=== PATIENT | male | born 1950 | race Caucasian/White ===

== ENCOUNTER 2019-06-09 21:06 | Inpatient (IN) | payer OTHER ==
[~2019-06-09] VITALS: Ht 182.9 cm; Wt 111.1 kg
[2019-06-09] MEDS ORDERED: ACCU-CHEK COMFORT CURVE STRIP VI ONE (21:30)
[2019-06-09 22:27] LABS: INR 0.98 (0.9-1.15); Partial Thromboplastin Time 25.9 sec (23.64-32.05)
[2019-06-09 22:32] LABS: Alanine Aminotransferase 36 U/L (16-61); Albumin 3.9 g/dL (3.4-5.0); Anion Gap 7 (5-15); Blood Urea Nitrogen 19 mg/dL (7-18); Calcium 9.6 mg/dL (8.5-10.1); Carbon Dioxide 29 mmol/L (21-32); Chloride 105 mmol/L (98-107); Glucose 112 mg/dL (74-106); Potassium 4.6 mmol/L (3.5-5.1); Sodium 141 mmol/L (136-145)
[2019-06-09 22:36] LABS: Basophils # (auto) 0 uL; Basophils % (auto) 0.4 % (0.0-2.0); Eosinophils # (auto) 0.1 uL; Eosinophils % (auto) 1.3 % (0.0-7.0); Hematocrit 47.9 % (41.0-53.0); Lymphocytes % (auto) 14.2 % (10.0-50.0); Mean Corpuscular Hemoglobin 32.6 pg (28.0-32.0); Mean Corpuscular Hgb Conc. 33.5 g/dL (32.0-36.0); Mean Corpuscular Volume 97.3 fL (80.0-100.0); Monocytes # (auto) 0.7 uL; Neutrophils # (auto) 5.1 uL; Neutrophils % (auto) 74.1 % (37.0-80.0); Platelet Count (auto) 223 10^3/uL (140-450); Red Blood Cells 4.92 10^6/uL (4.5-5.90); White Blood Cell 6.9 10^3/uL (4.4-10.8)
[2019-06-09 22:38] LABS: Alkaline Phosphatase 71 U/L (45-117); Aspartate Aminotransferase 39 U/L (15-37); BUN/Creatinine Ratio 18.4; Bilirubin, Total 0.8 mg/dL (0.2-1.0); GFR African American 92 mL/min; GFR Non-African American 76 mL/min; Total Protein 8.1 g/dL (6.4-8.2)
[2019-06-10 04:11] LABS: Urine Bacteria NONE SEEN /hpf (None Seen); Urine Blood Negative /uL (Negative); Urine Specific Gravity 1.023 (1.001-1.035); Urine WBC 2 /hpf (0 - 3)
[2019-06-10] MEDS ORDERED: SPIRONOLACTONE 25 MG TAB PO ONE (08:15)
[2019-06-10] MEDS ORDERED: ONDANSETRON HCL 4 MG/2 ML VIAL IV ONE ×2 (08:15→20:45)
[2019-06-10] MEDS ORDERED: FUROSEMIDE 40 MG/4 ML VIAL IV ONE (08:15)
[2019-06-10] MEDS ORDERED: MORPHINE SULF INJ 2 MG/ML SYRINGE 1ML IV ONE ×2 (08:15→16:00)
[2019-06-10] MEDS ORDERED: MORPHINE SULFATE 4 MG/ML SYR/VIAL IV ONE (20:45)
[2019-06-10] MEDS ORDERED: NITROGLYCERIN 0.4 MG SL TAB SL PRN (22:00)
[2019-06-10] MEDS ORDERED: TEMAZEPAM 15 MG CAP PO PRN (22:00)
[2019-06-10] MEDS ORDERED: MORPHINE SULF INJ 2 MG/ML SYRINGE 1ML IV PRN (22:00)
[2019-06-10] MEDS ORDERED: ONDANSETRON HCL 4 MG/2 ML VIAL IV PRN (22:00)
[2019-06-10] MEDS ORDERED: ACETAMINOPHEN 325 MG TAB PO PRN (22:00)
[2019-06-10] MEDS ORDERED: DEXTROSE (50%) 50ML SYRG IV PRN (22:00)
[2019-06-10 22:07] LABS: Basophils # (auto) 0 uL; Basophils % (auto) 0.4 % (0.0-2.0); Eosinophils # (auto) 0.1 uL; Eosinophils % (auto) 1.5 % (0.0-7.0); Hemoglobin 15.6 g/dL (13.5-17.5); Lymphocytes % (auto) 13.9 % (10.0-50.0); Mean Corpuscular Hgb Conc. 33.3 g/dL (32.0-36.0); Mean Corpuscular Volume 96.1 fL (80.0-100.0); Monocytes % (auto) 13.9 % (0.0-12.0); Neutrophils # (auto) 4.9 uL; Neutrophils % (auto) 70.3 % (37.0-80.0); Nucleated Red Blood Cells % 0.1 %; Platelet Count (auto) 201 10^3/uL (140-450); Red Blood Cells 4.89 10^6/uL (4.5-5.90); Red Cell Distribution Width 14.7 % (11.8-14.3); White Blood Cell 6.9 10^3/uL (4.4-10.8)
[2019-06-10 22:21] LABS: BUN/Creatinine Ratio 13.7; Calcium 8.7 mg/dL (8.5-10.1); Potassium 4.1 mmol/L (3.5-5.1)
[2019-06-10 23:00] VITALS: BP 144/75
--- NOTE | 2019-06-10 23:00 | NUR ---
Telemetry admit from ER TITUS SNELL admitted to Telemetry unit after SBAR received. Patient oriented to JEFFREY CARBAJAL RN primary RN, unit, room, bed, and unit policies regarding patient care and visiting hours. Patient now on continuous telemetry monitoring, tele box # 51 and telemetry reading on arrival to unit is Sinus Rhythm at 81BPM. Patient placed on bedside oxygen, weighed by bedscale and encouraged to call if they need something. All questions and concerns addressed, patient verbalized understanding.
[2019-06-10 23:22] VITALS: BP 144/75
[2019-06-10] MEDS: AMIODARONE HCL 200 MG TAB PO SCH (23:24)
[2019-06-10] MEDS: ATORVASTATIN 20 MG TAB PO SCH (23:24)
[2019-06-10] MEDS: FAMOTIDINE 20 MG TAB PO SCH (23:24)
[2019-06-10] MEDS: ACCU-CHEK COMFORT CURVE STRIP VI SCH (23:47)
[2019-06-10] MEDS: InsuLIN REG 1unit/0.01ml Soln (100units/ml) SC SCH (23:48)
[2019-06-11] VITALS (8 sets, daily range): BP systolic 118–136; BP diastolic 62–73
[2019-06-11] MEDS ORDERED: GLIP5TAB12 PO (01:15)
[2019-06-11] MEDS ORDERED: LISI2.5T47 PO (01:15)
[2019-06-11] MEDS ORDERED: METF-490 PO (01:15)
[2019-06-11] MEDS ORDERED: CYAN50TA3 PO (01:15)
[2019-06-11] MEDS ORDERED: ISOS30TA4 PO (01:15)
[2019-06-11] MEDS ORDERED: PIO30T PO (01:15)
[2019-06-11] MEDS ORDERED: FLAX10003 PO (01:15)
[2019-06-11] MEDS ORDERED: DABI150C5 PO (01:15)
[2019-06-11] MEDS ORDERED: AMIO200T33 PO (01:15)
[2019-06-11] MEDS ORDERED: OMEP-335 PO (01:15)
[2019-06-11] MEDS ORDERED: GABA300C10 PO (01:15)
[2019-06-11] MEDS ORDERED: FESO8TAB PO (01:15)
[2019-06-11] MEDS ORDERED: ATO40T PO (01:15)
[2019-06-11] MEDS ORDERED: LEVO50TA61 PO (01:15)
[2019-06-11] MEDS ORDERED: DRON400T PO (01:15)
[2019-06-11] MEDS ORDERED: PRE5T PO (01:15)
--- NOTE | 2019-06-11 02:10 | NUR ---
ROUNDS Patient is c/o pain to right flank and back 5/10. Hospitalist paged, order received and noted.
[2019-06-11] MEDS ORDERED: traMADol HCL 50 MG TAB PO ONE (02:30)
--- NOTE | 2019-06-11 02:30 | NUR ---
Panda catheter insertion Patient assessed and informed about the doctor's order to placed a panda catheter. Patient educated on catheter and reason for insertion, patient verbalized understanding. All questions answered. Panda catheter 16 guage Thai inserted with clean sterile technique. Patient tolerated well.
--- NOTE | 2019-06-11 02:45 | NUR ---
Went to patient's room to see if patient still needs pain medication, patient is resting with eyes closed at this time. Will monitor
--- NOTE | 2019-06-11 05:30 | NUR ---
ROUNDS Ultram given for pain to right flank of 5/10. Patient is alert and awake, no distress noted. Repositioned patient to right side using pillows. Patient states he feels like he is constipated. Will inform day nurse to request for laxative.
[2019-06-11] MEDS: FUROSEMIDE 20 MG/2 ML VIAL IV SCH ×2 (05:31→17:43)
[2019-06-11] MEDS: InsuLIN REG 1unit/0.01ml Soln (100units/ml) SC SCH ×4 (06:00→23:44)
[2019-06-11] MEDS: ACCU-CHEK COMFORT CURVE STRIP VI SCH ×4 (06:10→23:43)
[2019-06-11 06:34] LABS: Anion Gap 8 (5-15); BUN/Creatinine Ratio 16.1; Blood Urea Nitrogen 15 mg/dL (7-18); Carbon Dioxide 29 mmol/L (21-32); Chloride 96 mmol/L (98-107); GFR African American 104 mL/min; GFR Non-African American 86 mL/min; Glucose 117 mg/dL (74-106); Sodium 133 mmol/L (136-145)
--- NOTE | 2019-06-11 07:30 | NUR ---
Opening Shift Note RECEIVED REPORT FROM NOC RN. Assumed care of patient, awake and alert. PATIENT ON OXYGEN AT 3 LPM VIA NASAL CANNULA WITH no S/S of distress/SOB or pain. BED IN LOWEST, LOCKED POSITION WITH SIDERAILS UP x2 AND CALL LIGHT WITHIN REACH. Instructed on POC and to call for assist PRN, will continue to monitor for changes Q1hr and PRN.
[2019-06-11] MEDS ORDERED: IOHEXOL 350 MG/ML 100ML IJ ONE (07:41)
[2019-06-11] MEDS: FAMOTIDINE 20 MG TAB PO SCH ×2 (10:57→21:37)
[2019-06-11] MEDS: AMIODARONE HCL 200 MG TAB PO SCH ×2 (10:57→21:37)
[2019-06-11] MEDS: ISOSORBIDE MONONITRATE ER 60 MG TAB PO SCH (10:57)
[2019-06-11] MEDS: CLOPIDOGREL BISULFATE 75 MG TAB PO SCH (10:58)
[2019-06-11] MEDS: LISINOPRIL 5 MG TAB PO SCH (10:58)
[2019-06-11] MEDS: ENOXAPARIN SOD 40 MG/0.4 ML SYRINGE SC SCH (10:58)
[2019-06-11] MEDS ORDERED: ALBUTEROL SULF 2.5 MG/0.5ML(0.5%) NEB SOLN NEB PRN (11:15)
[2019-06-11] MEDS ORDERED: LEVOFLOXACIN 500MG 100 ML IV ONE (11:15)
--- NOTE | 2019-06-11 19:30 | NUR ---
Opening Shift Note Assumed care of patient, alert and oriented x 4. No S/S of distress/SOB. C/O pain of 5/10 to right side due to previous fall. Bed in lowest locked position, side rails up x 2, call light within reach. Dominguez patent and draining to gravity. Rash to groin noted, z-guard applied, optifoam to sacrum CDI, z-guard applied, optifoam to LT elbow CDI. Instructed on POC and to call for assist PRN, will continue to monitor for changes Q1hr and PRN.
--- NOTE | 2019-06-11 20:05 | NUR ---
Respiratory note: ASSESSED PT FOR PRN MED NEB AT THIS TIME, PT DENIES SOB AT THIS TIME, NO RESP DISTRESS NOTED, NO TX INDICATED. PULSE OX 94% ON 3LNC, HR 77, RR 20, BILATERAL BS CLEAR
[2019-06-11] MEDS: ACETAMINOPHEN/CODEINE#3 (300/30mg) TAB PO PRN (20:24)
[2019-06-11] MEDS: ATORVASTATIN 20 MG TAB PO SCH (21:37)
[2019-06-12] VITALS (7 sets, daily range): BP systolic 108–129; BP diastolic 62–78
[2019-06-12 05:31] LABS: BUN/Creatinine Ratio 18.5; Calcium 9.4 mg/dL (8.5-10.1); Potassium 3.9 mmol/L (3.5-5.1)
[2019-06-12] MEDS: FUROSEMIDE 20 MG/2 ML VIAL IV SCH ×2 (05:44→17:35)
[2019-06-12] MEDS: InsuLIN REG 1unit/0.01ml Soln (100units/ml) SC SCH ×4 (05:44→23:57)
[2019-06-12] MEDS: ACCU-CHEK COMFORT CURVE STRIP VI SCH ×4 (05:44→23:56)
--- NOTE | 2019-06-12 06:15 | NUR ---
PRN MN TX NOT INDICATED AT THIS TIME. PT IS AWAKE, ALERT AND ORIENTED. PT ON HIGH FOWLERS. PT ON 3L/MIN VIA NC, 94%O2 SATS, HR 72 BPM, RR17 BPM, BS ARE CLEAR TO AUSCULTATION, SKIN IS WARM AND DRY TO THE TOUCH. RESPIRATION IS EVEN AND NON LABORED. PT DENIES SOB OR ANY OTHER RESPIRATORY DISTRESS. PT INSTRUCTED TO CALL IF MN TX IS INDICATED. PT VERBALIZED UNDERSTANDING. WILL CONTINUE TO MONITOR PT.
--- NOTE | 2019-06-12 07:30 | NUR ---
Opening Shift Note RECEIVED REPORT FROM NOC RN. Assumed care of patient, awake and alert. No S/S of distress/SOB or pain. BED IN LOWEST, LOCKED POSITION WITH SIDERAILS UP x2 AND CALL LIGHT WITHIN REACH. Instructed on POC and to call for assist PRN, will continue to monitor for changes Q1hr and PRN.
[2019-06-12] MEDS: ENOXAPARIN SOD 40 MG/0.4 ML SYRINGE SC SCH (10:16)
[2019-06-12] MEDS: LEVOFLOXACIN 500MG 100 ML IV SCH (10:16)
[2019-06-12] MEDS: ISOSORBIDE MONONITRATE ER 60 MG TAB PO SCH (10:17)
[2019-06-12] MEDS: CLOPIDOGREL BISULFATE 75 MG TAB PO SCH (10:17)
[2019-06-12] MEDS: FAMOTIDINE 20 MG TAB PO SCH ×2 (10:17→21:37)
[2019-06-12] MEDS: AMIODARONE HCL 200 MG TAB PO SCH ×2 (10:18→21:37)
[2019-06-12] MEDS: LISINOPRIL 5 MG TAB PO SCH (10:18)
--- NOTE | 2019-06-12 12:15 | NUR ---
WOUND CARE NOTE: IN TO SEE PATIENT AT THIS TIME PER WOUND CARE CONSULT REQUEST. PATIENT WAS ADMITTED TO [facility] WITH DIAGNOSIS OF ACUTE/CHRONIC CHF. CURRENT KINA SCORE IS 15. PATIENT CAN SELF TURN/REPOSITION SELF WITH NO ASSISTANCE BY STAFF. PATIENT WAS NOTED TO HAVE SKIN INTEGRITY ISSUES UPON ADMIT. WOUND PHOTOS WERE TAKEN FOR REFERENCE. PATIENT IS NTOED TO HAVE INTERTRIGO, WITH MASD AND SKIN EROSION TO INTRAGLUTEAL BUTTOCKS. ANTIFUNGAL CLEAR OINTMENT WAS APPLIED BY BEDSIDE NURSE. LEFT ELBOW IS NOTED TO HAVE A SKIN TEAR THAT IS PARTIAL THICKNESS. APPLIED THERAHONEY, OPTIFOAM GENTLE DRESSING TO WOUND. PATIENT WOULD BENEFIT FROM: FREQUENT TURN SCHEDULE Q 2 HOURS, PRN CONDITION PERMITS, WITH PRESSURE REDISTRIBUTION USING PILLOWS/WEDGES, BID APPLICATION WITH ANTIFUNGAL CLEAR OINTMENT TO INTRAGLUTEAL INTERTRIGINOUS RASH AREA, Q 3 DAY/PRN DRESSING CHANGE TO LEFT ELBOW SKIN TEAR, DIETARY CONSULT, SKIN/WOUND CARE PLAN, CONTINUED MONITORING BY WOUND CARE TEAM. Addendum: 06/12/19 at 1914 by Yuridia Eid RN Amended: Links added.
--- NOTE | 2019-06-12 14:19 | NUR ---
NUTRITION CONSULT/ASSESSMENT NOTES Please refer to link notes of nutrition screen form filed under the intervention section of the plan of care for further details. Est. Needs: 1800 kcal to 2400 kcal (15-20 kcal/kgBW), 95 gms to 119 gms pro (0.8-1.0 gms/kgBW). Will continue to monitor pertinent labs and reassess nutrient need prn Thank you for this consult. Addendum: 06/12/19 at [address] Amended: Links added.
[2019-06-12] MEDS: ACETAMINOPHEN/CODEINE#3 (300/30mg) TAB PO PRN ×2 (16:00→21:37)
--- NOTE | 2019-06-12 19:30 | NUR ---
Opening Shift Note Assumed care of patient, alert and oriented x 4. No S/S of distress/SOB. C/O pain 5/10 to buttox. On 3L oxygen via nasal cannula. On bedrest, up to chair with PT. Bed in lowest locked position, side rails up x 2, call light within reach. Instructed on POC and to call for assist PRN, will continue to monitor for changes Q1hr and PRN.
[2019-06-12] MEDS: ATORVASTATIN 20 MG TAB PO SCH (21:37)
--- NOTE | 2019-06-13 00:23 | NUR ---
RT NOTE: PT ASSESSED FOR PRN MED NEB TX, PT DENIES SOB , BS CLEAR AND DECREASED WITH NO RESP DISTRESS NOTED. PT ON 2LPM NC SPO2 95% HR 79, RR 16. PT NOTIFIED TO HAVE RT PAGED IF SOB OCCURS.
[2019-06-13 05:00] VITALS: BP 143/66
[2019-06-13] MEDS: InsuLIN REG 1unit/0.01ml Soln (100units/ml) SC SCH ×4 (06:01→23:44)
[2019-06-13] MEDS: FUROSEMIDE 20 MG/2 ML VIAL IV SCH ×2 (06:01→18:38)
[2019-06-13] MEDS: ACCU-CHEK COMFORT CURVE STRIP VI SCH ×4 (06:01→23:44)
--- NOTE | 2019-06-13 08:10 | NUR ---
Opening Note Assumed Care of patient, he is A & O x4, no s/s of distress at this time. POC discussed with patient. Patient states the Tylenol with codeine does not work for his pain and is requesting [place] instead. Will bring it to Dr. Carias's atttention. Bed is in low, locked position, call light within reach. Patient is a fall risk, bed alarm is on, educated patient to call for assistance before exiting bed. Will continue to monitor Q1h and PRN.
[2019-06-13 09:00] VITALS: BP 114/67
--- NOTE | 2019-06-13 10:08 | NUR ---
Respiratory note: ASSESSED PT FOR PRN MEDNEB TX. HR 74, RR 16, POX 94% ON 3L NC. BREATH SOUNDS CLEAR THROUGHOUT. NO S/S OF RESPIRATORY DISTRESS. MEDNEB TX NOT INDICATED AT THIS TIME. ADVISED PT TO CALL FOR RT IF NEEDED.
[2019-06-13] MEDS: CLOPIDOGREL BISULFATE 75 MG TAB PO SCH (10:48)
[2019-06-13] MEDS: LEVOFLOXACIN 500MG 100 ML IV SCH (10:48)
[2019-06-13] MEDS: AMIODARONE HCL 200 MG TAB PO SCH ×2 (10:49→22:30)
[2019-06-13] MEDS: ENOXAPARIN SOD 40 MG/0.4 ML SYRINGE SC SCH (10:49)
[2019-06-13] MEDS: FAMOTIDINE 20 MG TAB PO SCH ×2 (10:49→22:30)
[2019-06-13] MEDS: ISOSORBIDE MONONITRATE ER 60 MG TAB PO SCH (10:51)
[2019-06-13] MEDS: LISINOPRIL 5 MG TAB PO SCH (10:52)
--- NOTE | 2019-06-13 12:30 | NUR ---
PT walked patient Walked patient with walker, reported that patient had some discomfort with catheter when sitting in a chair, was told by PT that there was a little bit of blood in the patient catheter. Went to assess patient, there was a small clot of blood that passed through the catheter tubing with patient in bed. Catheter is draining appropriately, not causing the patient any problems when lying down, no discomfort at this time. There is a statlock to hold catheter in place attached to patient leg. Will continue to monitor.
[2019-06-13 13:00] VITALS: BP 128/72
--- NOTE | 2019-06-13 13:30 | NUR ---
Patient IV leaking L AC 18G discontinued it was leaking, catheter intact, pressure bandage applied. New 22G started to the right wrist. Patient tolerated well.
[2019-06-13] MEDS: HYDROcodone-ACET 5/325MG TAB PO PRN ×2 (13:31→22:31)
[2019-06-13 17:00] VITALS: BP 124/74
--- NOTE | 2019-06-13 18:44 | NUR ---
PT CHECKED FOR PRN TX. PT DENIES SOB, NO ACUTE DISTRESS NOTED. TX IS NOT INDICATED AT THIS TIME. PT UNDERSTANDS TO PAGE IF TX NEEDED. HR 82 RR 18 93% ON 2 LPM VIA NC. B/S CLEAR BUT DECREASED.
--- NOTE | 2019-06-13 19:20 | NUR ---
Opening Shift Note Received report from patricia Harris RN. Assumed care of patient, awake and alert. No S/S of distress/SOB but complains of pain to right side 04/15. Instructed on POC and to call for assist PRN, will continue to monitor for changes Q1hr and PRN. Bed placed in lowest position, bed alarm turned on and call light within reach.
[2019-06-13 20:00] VITALS: BP 104/48
[2019-06-13 22:00] VITALS: BP 104/48
[2019-06-13] MEDS: ATORVASTATIN 20 MG TAB PO SCH (22:30)
--- NOTE | 2019-06-13 23:45 | NUR ---
IV insertion IV access obtained, via clean sterile technique by inserting 20 gauge catheter at left forearm after first attempt. IV secured properly. No trauma to site. Patient tolerated well.
[2019-06-14] VITALS (9 sets, daily range): BP systolic 100–149; BP diastolic 62–90
--- NOTE | 2019-06-14 | NUR ---
REMINDED PATIENT ON NOTHING BY MOUTH STATUS FOR THE UPCOMING STRESS TEST. PATIENT VERBALIZED UNDERSTANDING.
[2019-06-14] MEDS: ACCU-CHEK COMFORT CURVE STRIP VI SCH ×3 (06:16→17:29)
[2019-06-14] MEDS: FUROSEMIDE 20 MG/2 ML VIAL IV SCH ×2 (06:16→17:28)
[2019-06-14] MEDS: InsuLIN REG 1unit/0.01ml Soln (100units/ml) SC SCH ×3 (06:17→17:29)
--- NOTE | 2019-06-14 07:08 | NUR ---
ROUNDS PATIENT IS RESTING IN BED WITH EYES CLOSED, NO DISTRESS NOTED AND PATIENT DENIES PAIN. BLOOD SUGAR IS 153, GIVEN 2 UNITS OF INSULIN COVERAGE.
--- NOTE | 2019-06-14 07:52 | NUR ---
Opening Shift Note Assumed care of patient, awake and alert. No S/S of distress/SOB or pain. Instructed on POC and to call for assist PRN, will continue to monitor for changes Q1hr and PRN.
[2019-06-14] MEDS ORDERED: ADENOSINE 98 MG in GIVE UN-DILUTED 0 ML IV STA (08:18)
--- NOTE | 2019-06-14 08:32 | NUR ---
per manager sterile and pt reported pt panda cath leaking. assessed catheter baloon volume and flushed no leaking noted secured panda to right leg via stat lock will continue to moniotr panda cath output
--- NOTE | 2019-06-14 09:00 | NUR ---
pt left for stress test
[2019-06-14] MEDS: FAMOTIDINE 20 MG TAB PO SCH ×2 (10:00→22:10)
[2019-06-14] MEDS: CLOPIDOGREL BISULFATE 75 MG TAB PO SCH (10:00)
[2019-06-14] MEDS: LEVOFLOXACIN 500MG 100 ML IV SCH (10:00)
[2019-06-14] MEDS: ENOXAPARIN SOD 40 MG/0.4 ML SYRINGE SC SCH (10:00)
[2019-06-14] MEDS: ISOSORBIDE MONONITRATE ER 60 MG TAB PO SCH (10:00)
[2019-06-14] MEDS: AMIODARONE HCL 200 MG TAB PO SCH ×2 (10:00→22:10)
[2019-06-14] MEDS: LISINOPRIL 5 MG TAB PO SCH (10:00)
--- NOTE | 2019-06-14 11:32 | NUR ---
pt returned from procedure complaint if pain 8/10 in lower back
[2019-06-14] MEDS: HYDROcodone-ACET 10/325MG TAB PO PRN ×3 (11:40→22:10)
--- NOTE | 2019-06-14 11:46 | NUR ---
reassessed panda no leaking noted
--- NOTE | 2019-06-14 12:15 | NUR ---
Respiratory note: PT AWAKE, AND ALERT. NO RESPIRATORY DISTRESS NOTED. SPO2 93% ON 3L NC, HR 84, RR 18. BS CLEAR T/O. NO PRN MEDNEB TX INDICATED AT THIS TIME. PT INFORMED TO PUSH CALL BUTTON IF INCREASED WOB, SOB, OR WHEEZING OCCURS.
--- NOTE | 2019-06-14 12:55 | NUR ---
pt ambulating with physical therapy, no complaint of pain or discomfort noted
--- NOTE | 2019-06-14 13:28 | NUR ---
pt noted that after walking with pt he feels a spasm sharp pain when trying to sit down, assessed pt noted blood in panda cath tubing, otherwise draining properly, pt states spasm went away when lying in bed but occasionally happens, paged MD Carias awaiting call back
--- NOTE | 2019-06-14 14:15 | NUR ---
paged md Carias again to report blood in catheter and also to recieve orders for pt constipation awaiting call back
[2019-06-14] MEDS ORDERED: MAGNESIUM CITRATE SOLUTION 300 ML BTL PO ONE (15:30)
[2019-06-14] MEDS ORDERED: LACTULOSE 20Gm/30ML SOLN PO PRN (15:30)
--- NOTE | 2019-06-14 15:30 | NUR ---
md Carias rounded on pt made aware of bladder spasms and pt constipation. explained to pt bladder will spasm with panda cath in, offered usage of urinal per pt "i cant make a urinal work" new orders put in for constipation
--- NOTE | 2019-06-14 15:52 | NUR ---
assessment Patient is a 68 year old male who is alert and oriented. Patients cognitive abilities are intact. Prior to admission patient lived home with his granddaughter Starla [phone] and functioned independently. Patient informed me he is able to care for his own ADLs. Per patient he will return home to his prior living arrangements post discharge and family will transport him home. Patient informed me he has a fww and a scooter for home use. Patients PCP is Dr Aragon. Patient feels safe returning home on discharge. Arielle has no post discharge needs at this time. I informed patient he has a right to speak to a social work administrator regarding all care. I informed patient he has a right to participate in any and all discharge planning. Patient does not have a POA and advanced directive. I have offered patient information on POA and advanced directives. I informed the patient the advantages and benefits of having an Advanced Directive. Patient verbalized understanding and agreed to discharge plan. Addendum: 06/14/19 at 1555 by Zaida GARAY Amended: Links added.
--- NOTE | 2019-06-14 16:32 | NUR ---
PT had one large hard bm
--- NOTE | 2019-06-14 16:40 | NUR ---
pt doesnt want foam dressing on buttocks stated he will be using restroom and doesnt want it to get dirty, cream applied to buttock area
--- NOTE | 2019-06-14 17:03 | NUR ---
pt continued to have bladder spasms accompanied by blood in urine with spasm, hydrocodone given for pain per pt request, also per pt request Dominguez catheter removed, pt given urinal
[2019-06-14] MEDS ORDERED: POTASSIUM CHL 20 Meq TABLET PO ONE (18:00)
--- NOTE | 2019-06-14 18:07 | NUR ---
pt urinated x1 after panda catheter removal using urinal
--- NOTE | 2019-06-14 19:25 | NUR ---
Opening Shift Note Received report from patricia Waldrop RN. Assumed care of patient, awake and alert. No S/S of distress/SOB and patient denies pain at this time. Instructed on POC and to call for assist PRN, will continue to monitor for changes Q1hr and PRN. Bed placed in lowest position, bed alarm turned on and call light within reach.
--- NOTE | 2019-06-14 21:00 | NUR ---
Respiratory note: ASSESSED PT FOR PRN TX. TX NOT INDICATED AT THIS TIME BS ARE DIMINISHED CLEAR. PT STATES HE DOES NOT NEED BREATHING TREATMENT. PT AWARE OF HIS ORDER AND UNDERSTANDS. RT NAME AND PAGER ASSIGNMENT WRITTEN ON PTS ROOM BOARD. WILL CONTINUE TO MONITOR.
[2019-06-14] MEDS: ATORVASTATIN 20 MG TAB PO SCH (22:11)
--- NOTE | 2019-06-14 23:00 | NUR ---
ROUNDS Assisted patient to use the urinal. Patient standing up to the side of bed to use urinal. 150ml of light todd color urine in the urinal. Assisted patient back in bed.
--- NOTE | 2019-06-15 05:00 | NUR ---
EKG DONE FOR PRE-OP. CONSENT FOR LHC SIGNED. PATIENT IS RESTING IN BED WITH EYES CLOSED, NO DISTRESS NOTED AND PATIENT DENIES PAIN THIS TIME. BLOOD SUGAR IS 142 COVERED WITH 2 UNITS OF INSULIN. WILL MONITOR.
[2019-06-15 05:42] VITALS: BP 129/68
[2019-06-15] MEDS: FUROSEMIDE 20 MG/2 ML VIAL IV SCH ×2 (05:57→17:38)
[2019-06-15] MEDS: InsuLIN REG 1unit/0.01ml Soln (100units/ml) SC SCH ×4 (05:58→17:29)
[2019-06-15] MEDS: ACCU-CHEK COMFORT CURVE STRIP VI SCH ×4 (05:58→17:29)
--- NOTE | 2019-06-15 06:00 | NUR ---
LASIX MEDICATION HELD R/T UPCOMING PROCEDURE.
[2019-06-15 06:13] LABS: Basophils # (auto) 0 uL; Basophils % (auto) 0.7 % (0.0-2.0); Eosinophils # (auto) 0.3 uL; Eosinophils % (auto) 4.7 % (0.0-7.0); Hematocrit 50.4 % (41.0-53.0); Lymphocytes # (auto) 1.3 uL; Lymphocytes % (auto) 20.2 % (10.0-50.0); Mean Corpuscular Hemoglobin 32.6 pg (28.0-32.0); Mean Corpuscular Hgb Conc. 33.8 g/dL (32.0-36.0); Mean Corpuscular Volume 96.4 fL (80.0-100.0); Monocytes # (auto) 1.1 uL; Neutrophils # (auto) 3.9 uL; Neutrophils % (auto) 58.4 % (37.0-80.0); Nucleated Red Blood Cells % 0.1 %; Platelet Count (auto) 242 10^3/uL (140-450); Red Blood Cells 5.23 10^6/uL (4.5-5.90); Red Cell Distribution Width 14.6 % (11.8-14.3); White Blood Cell 6.7 10^3/uL (4.4-10.8)
[2019-06-15 06:39] LABS: BUN/Creatinine Ratio 25.8; Magnesium 2.6 mg/dL (1.6-2.6); Potassium 4.2 mmol/L (3.5-5.1)
[2019-06-15 06:42] LABS: INR 1.02 (0.9-1.15); Partial Thromboplastin Time 27.2 sec (23.64-32.05)
--- NOTE | 2019-06-15 07:45 | NUR ---
Morning note Patient resting in bed with eyes closed. Respirations even and unlabored, no distress noted. Bed is in lowest locked position with x2 side rails up. Call light is within reach of the patient. Will continue to monitor q1hr & PRN.
[2019-06-15 08:07] VITALS: BP 137/72
--- NOTE | 2019-06-15 09:10 | NUR ---
Respiratory note: PT IS AWAKE, AND ALERT. NO RESPIRATORY DISTRESS NOTED. SPO2 94% ON 3L NC, HR 68, RR 18, BS CLEAR/DIMINISHED T/O. NO PRN MEDNEB TX INDICATED AT THIS TIME. PT INFORMED TO PUSH CALL BUTTON IF INCREASED WOB, SOB, OR WHEEZING OCCURS.
[2019-06-15] MEDS: ENOXAPARIN SOD 40 MG/0.4 ML SYRINGE SC SCH (10:00)
[2019-06-15] MEDS: CLOPIDOGREL BISULFATE 75 MG TAB PO SCH (10:15)
[2019-06-15] MEDS: AMIODARONE HCL 200 MG TAB PO SCH ×2 (10:15→21:14)
[2019-06-15] MEDS: FAMOTIDINE 20 MG TAB PO SCH ×2 (10:15→21:14)
[2019-06-15] MEDS: HYDROcodone-ACET 10/325MG TAB PO PRN (10:15)
[2019-06-15] MEDS: ISOSORBIDE MONONITRATE ER 60 MG TAB PO SCH (10:15)
[2019-06-15] MEDS: LISINOPRIL 5 MG TAB PO SCH (10:16)
[2019-06-15] MEDS: LEVOFLOXACIN 500MG 100 ML IV SCH (10:17)
--- NOTE | 2019-06-15 11:45 | NUR ---
Patient off unit to laboratory animal care veterinarian via hospital bed. Notified BUTCH Davis, that patient has c/o burning and pain located at the IV site to the LFA and needs to be discontinued. Susan verbalized understanding. IV to the RWR is patent with no s/s of infiltration, phlebitis or leaking. Respirations even and unlabored, no distress noted.
--- NOTE | 2019-06-15 12:00 | NUR ---
RE: Intervention Patient off unit at scheduled procedure. Unable to perform intervention. Addendum: 06/15/19 at 1205 by Gwendolyn Ness RN Amended: Links added.
[2019-06-15] MEDS ORDERED: LIDOCAINE 2%HCL (LOCAL ANESTH.) INJ 20ML MDV ONE ×2 (12:15→13:39)
[2019-06-15] MEDS ORDERED: fentaNYL CITRATE 100 MCG/2 ML VL ONE ×2 (12:15→13:38)
[2019-06-15] MEDS ORDERED: MIDAZOLAM HCL 1MG/1ML-2 ML VIAL ONE ×2 (12:15→13:38)
[2019-06-15] MEDS ORDERED: IOHEXOL 350 MG/ML 100ML IJ ONE (12:15)
[2019-06-15] MEDS ORDERED: VERAPAMIL 2.5MG/ML INJ 2ML VIAL IV ONE (12:16)
--- NOTE | 2019-06-15 12:38 | NUR ---
Nutrition Follow-up Notes Wt.: 117.0 kg as of 06/13/19. Pt's on oxygen via nasal cannula, denies any discomfort during rounds this morning. 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 Pt's currently NPO for a procedure today, noted for active Wound and Cardiology consults. Est. Needs: 1800 kcal to 2400 kcal (15-20 kcal/kgBW), 95 gms to 119 gms pro (0.8-1.0 gms/kgBW). Will continue to monitor pertinent labs and reassess nutrient need prn Labs: Pertinent labs today wnl except for Gluc 133 H, BUN 32 H Skin: Dontae scale 18, mod risk,right left buttocks pressure ulcers per interface control officer. Pls refer to latest delicatessen slicer's notes for further details re: tx plans GI: Pt had 1 BM yesterday per interface control officer. PES: Altered nutrition related lab values r/t current/chronic medical condition aeb hyperglycemia, elev. BUN, AST levels Obesity r/t food intake more than body requirement aeb 143% IBW, BMI 35.6 kg/m2 and increased body adiposity Will continue to monitor NPO status, skin status, pertinent labs and weight trend. F/u in 2 to 3 days. Rec.: 1.) Resume oral diet (Consistent Standard Carb: 60 gms/meal, Cardiac: 2 gms Na, Low Chol, Low Fat diet) when medically appropriate. 2.) Consider daily MVI with minerals and Asc acid 500 mgs BID. 3.) Continue close supervision during meals. 4.) Refer pt to CDE/RD for further nutrition education and weight monitoring upon discharge. 5.) Continue current plan of care. Thank you for this consult.
[2019-06-15 13:00] VITALS: BP 128/71
[2019-06-15] MEDS ORDERED: ATROPINE SULF 1 MG/10ml SYR ONE (13:22)
[2019-06-15] MEDS ORDERED: IODIXANOL 320MG/ML 100ML BTL IV ONE (13:27)
[2019-06-15] MEDS ORDERED: NITROGLYCERIN 5MG/ML 10ML VIAL IV ONE (13:31)
[2019-06-15] MEDS ORDERED: ANGIOMAX 250 MG VIAL IV ONE (13:33)
[2019-06-15] MEDS ORDERED: SODIUM CHL 0.9% 50 ML ONE (13:33)
[2019-06-15] MEDS ORDERED: ASPirin 325 MG TAB ONE (14:54)
--- NOTE | 2019-06-15 16:09 | NUR ---
Patient returned to unit via hospital bed. TITUS SNELL brought to bed 279A following left Cardiac catheterization, on teletypesetter monitor and portable oxygen. Catheterization site assessed for any bleeding, redness or swelling. VascBand device in place on the right radial. Perclose in place on the right groin. Both sites are clean, dry and intact. Pedal pulses on affected leg assessed for positive tissue perfusion. Patient instructed on need to notify staff immediately if any pain, burning or wetness to site, and any lower back pain. All questions and concerns addressed, patient verbalized understanding of all education and instruction. See notes for any further. Fall precautions in place with bed in lowest locked position with call light within reach. Bed alarm turned on for safety.
--- NOTE | 2019-06-15 16:23 | NUR ---
Air removed from VascBand per MD order. no bleeding noted. Patient tolerated well.
--- NOTE | 2019-06-15 16:40 | NUR ---
Air removed from VascBand per MD order. no bleeding noted. Patient tolerated well. Right groin dressing is clean, dry and intact. Area is soft to palpitation. Patient resting flat in bed with eyes closed. Respirations even and unlabored, no distress noted. Call light within reach.
[2019-06-15 17:07] VITALS: BP 110/65
--- NOTE | 2019-06-15 17:22 | NUR ---
Air removed from VascBand per MD order. no bleeding noted. Patient tolerated well. No further air in band. Right groin dressing is clean, dry and intact. Area is soft to palpitation. Patient placed in semi-fowlers position. No bleeding noted at the right groin site.
--- NOTE | 2019-06-15 17:41 | NUR ---
Vascband removed No bleeding noted. Sterile gauze with tagederm applied. Patient reports area is tender to palpitation. No ecchymosis noted. Patient sitting at side of bed with both feet dangling. Dressing to the right groin is clean, dry and intact. No ecchymosis noted. Patient denies pain. Respirations are even and unlabored, no distress noted. Call light within reach.
--- NOTE | 2019-06-15 18:20 | NUR ---
Patient reports mild epistaxis Patient states "This happens at home. It will stop." Small amount of blood noted. Humidifier placed on nasal cannula for comfort and tissues provided. Patient sitting at side of bed with both feet dangling. Dressing to the right groin is clean, dry and intact. No ecchymosis noted. Right wrist dressing is clean, dry and intact. No ecchymosis noted. Call light within reach. Visitors at bedside.
--- NOTE | 2019-06-15 18:51 | NUR ---
Patient ambulated to the restroom with steady gait. Patient used call light system and returned to bed with standby assistance from staff member. No complications noted. Call light within reach.
--- NOTE | 2019-06-15 18:53 | NUR ---
Closing note Respirations even and unlabored, no distress noted. Right wrist access site dressing is clean, dry and intact with no ecchymosis and/or bleeding noted. Patient reports tenderness to the area. Right groin access site dressing is clean, dry and intact with no ecchymosis and/or bleeding noted. Pedal pulses assessed. Patient denies pain. Patient reports epistaxis has improved. Scant amount of blood noted on the tissue. Fall precautions in place with bed in lowest locked position with x2 side rails up and call light within reach.
--- NOTE | 2019-06-15 19:25 | NUR ---
Opening Shift Note Report received from day shift RN. Assumed care of patient. Patient laying in bed awake and alert x4. No S/S of distress/SOB noted and denies pain at this time. Dressings from cardio cath procedure to right groin and right wrist clean, dry, and intact. Both sites have no swelling, redness, or hematoma formation. Bed locked and in the lowest position. Call light left within reach. Instructed on POC and to call for assist PRN, will continue to monitor for changes Q1hr and PRN.
--- NOTE | 2019-06-15 19:30 | NUR ---
Care endorsed to BUTCH Sanders.
--- NOTE | 2019-06-15 20:16 | NUR ---
Respiratory note: ASSESSMENT FOR PRN MED NEB TX. PT PRESENTING NO DISTRESS AT THIS TIME. HR 81, SPO2 94%, RR 17 B/S DIMINISHED CLEAR. MED NEB TX NOT INDICATED AT THIS TIME. PT AWARE TO HAVE RT PAGED IF MED NEB TX IS NEEDED, WILL CONTINUE TO MONITOR.
[2019-06-15] MEDS: ATORVASTATIN 20 MG TAB PO SCH (21:14)
[2019-06-15 22:00] VITALS: BP 113/57
[2019-06-16] MEDS: ACCU-CHEK COMFORT CURVE STRIP VI SCH ×4 (00:04→18:00)
[2019-06-16] MEDS: HYDROcodone-ACET 5/325MG TAB PO PRN (02:49)
[2019-06-16 05:00] VITALS: BP 120/60
[2019-06-16] MEDS: FUROSEMIDE 20 MG/2 ML VIAL IV SCH ×2 (06:22→18:00)
[2019-06-16] MEDS: InsuLIN REG 1unit/0.01ml Soln (100units/ml) SC SCH ×4 (06:22→18:00)
[2019-06-16 09:00] VITALS: BP 133/65
[2019-06-16] MEDS: LEVOFLOXACIN 500MG 100 ML IV SCH (09:50)
[2019-06-16] MEDS: CLOPIDOGREL BISULFATE 75 MG TAB PO SCH (09:51)
[2019-06-16] MEDS: FAMOTIDINE 20 MG TAB PO SCH (09:51)
[2019-06-16] MEDS: LISINOPRIL 5 MG TAB PO SCH (09:51)
[2019-06-16] MEDS: AMIODARONE HCL 200 MG TAB PO SCH (09:52)
[2019-06-16] MEDS: ISOSORBIDE MONONITRATE ER 60 MG TAB PO SCH (09:52)
[2019-06-16] MEDS ORDERED: ASPirin-EC 81 mg tab PO SCH (10:00)
--- NOTE | 2019-06-16 10:47 | NUR ---
Respiratory note: ASSESSED PT FOR PRN MEDNEB TX. HR 81, RR 18, POX 92% ON ROOM AIR. BREATH SOUNDS CLEAR THROUGHOUT. NO S/S OF RESPIRATORY DISTRESS. PT WITH NO COMPLAINTS OF SOB. MEDNEB TX NOT INDICATED AT THIS TIME. ADVISED PT TO CALL FOR RT IF NEEDED.
[2019-06-16 12:57] VITALS: BP 118/62
[2019-06-16 13:00] VITALS: BP 108/70
--- NOTE | 2019-06-16 15:11 | NUR ---
CARE TRANSFERRED OVER TO [facility] PATIENT ALERT AND ORIENTED X4. AWAITING DISCHARGE, WAITING FOR HOME HEALTH PT TO BE ASSIGNED. PATIENT DENIES ANY SOB OR DISTRESS AT THIS TIME.
--- NOTE | 2019-06-16 15:12 | NUR ---
RECEIVED REPORT FROM BUTCH GAUTHIER ASSUMED CARE OF PT, AWAKE AND ALERT, PENDING DISCHARGE WAITING TO SET UP HOME HEALTH PHYSICAL THERAPY.
--- NOTE | 2019-06-16 15:38 | NUR ---
per Sera at [facility], [facility] will start care 24 48 hrs post d/c . [facility] ( ph [phone]) will contact pt
--- NOTE | 2019-06-16 15:41 | NUR ---
Per Mayela at [facility], start of care will be Wednesday.10 14 19
--- NOTE | 2019-06-16 18:30 | NUR ---
Discharge instructions given as ordered. Encourage to follow up with Dr. Esposito on June 29 at 2pm, pt verbalized he will make appointment with Dr. Allen his off track betting manager. All questions and concerns addressed. Patient verbalized understanding. Medication reconciliation form completed and copy given to patient. IV removed with catheter intact, pressure dressing applied. Telemetry unit returned to ICU. Patient taken to vehicle via wheelchair with all personal belongings, accompanied by staff and family member. No distress noted at time of departure.
== END 2019-06-16 18:30 | disposition home health service (06) | DRG 246 ==
LOC: EDBD 21:06 → ER 21:09 → TELE-WESTW 21:10
PROVIDERS: ADMIT Nurse Practitioner; ATTEND Internal Medicine Geriatric Medicine
PROC: 027035Z Dilation of Coronary Artery, One Artery with Two Drug-eluting Intraluminal Devices, Percutaneous Approach (ICD-10-PCS; principal; 2019-06-15)
PROC: X2C0361 Extirpation of Matter from Coronary Artery, One Artery using Orbital Atherectomy Technology, Percutaneous Approach, New Technology Group 1 (ICD-10-PCS; 2019-06-15)
PROC: 4A023N7 Measurement of Cardiac Sampling and Pressure, Left Heart, Percutaneous Approach (ICD-10-PCS; 2019-06-15)
PROC: B2111ZZ Fluoroscopy of Multiple Coronary Arteries using Low Osmolar Contrast (ICD-10-PCS; 2019-06-15)
PROC: B2151ZZ Fluoroscopy of Left Heart using Low Osmolar Contrast (ICD-10-PCS; 2019-06-15)
PROC: 4A033BC Measurement of Arterial Pressure, Coronary, Percutaneous Approach (ICD-10-PCS; 2019-06-15)
PROC: 5A1223Z Performance of Cardiac Pacing, Continuous (ICD-10-PCS; 2019-06-15)
DX: T82.855A Stenosis of coronary artery stent, initial encounter (principal); I50.33 Acute on chronic diastolic (congestive) heart failure; J98.11 Atelectasis; I11.0 Hypertensive heart disease with heart failure; E78.5 Hyperlipidemia, unspecified; S20.211A Contusion of right front wall of thorax, initial encounter; E66.01 Morbid (severe) obesity due to excess calories; R09.89 Other specified symptoms and signs involving the circulatory and respiratory systems; W19.XXXA Unspecified fall, initial encounter; Y83.1 Surgical operation with implant of artificial internal device as the cause of abnormal reaction of the patient, or of later complication, without mention of misadventure at the time of the procedure; K59.00 Constipation, unspecified; I25.10 Atherosclerotic heart disease of native coronary artery without angina pectoris; I48.91 Unspecified atrial fibrillation; Z53.9 Procedure and treatment not carried out, unspecified reason; E11.9 Type 2 diabetes mellitus without complications; I50.9 Heart failure, unspecified; W18.39XA Other fall on same level, initial encounter; Z68.33 Body mass index [BMI] 33.0-33.9, adult; I25.2 Old myocardial infarction; Y92.098 Other place in other non-institutional residence as the place of occurrence of the external cause; Y93.89 Activity, other specified; Y99.8 Other external cause status
CPT/HCPCS: 33210; 36415; 71045; 71250; 71275; 78452; 80048; 80053; 81001; 82565; 82962; 83605; 83735; 83880; 84484; 85025; 85379; 85610; 85730; 86850; 86900; 86901; 87040; 92933; 92934; 93005; 93017; 93306; 93458; 93571; 93970; 94761; 97110; 97116; 97163; 97530; 99152; 99153; C1724; C1751; C1769; C1874; C1887; G0378; J0153; J1815; J1956; J2250; J2405; J3490; Q9967

== ENCOUNTER 2020-09-20 09:14 | Inpatient (IN) | payer OTHER ==
[~2020-09-20] VITALS: Ht 182.9 cm; Wt 113.1 kg
[~2020-09-20 09:14] MED LIST: AMIO200T33 PO; ATO40T PO; CYAN50TA3 PO; DABI150C5 PO; DRON400T PO; FESO8TAB PO; FLAX10003 PO; GABA300C10 PO; GLIP5TAB12 PO; ISOS30TA4 PO; LEVO50TA61 PO; LISI2.5T47 PO; METF-490 PO; OMEP-335 PO; PIO30T PO; PRE5T PO
[2020-09-20 10:17] LABS: Basophils # (auto) 0 10 ^3/uL (0-0.2); Basophils % (auto) 0.2 % (0.0-2.0); Eosinophils # (auto) 0 10 ^3/uL (0-0.8); Hematocrit 44.4 % (41.0-53.0); Lymphocytes # (auto) 0.6 10 ^3/uL (0.4-5.4); Lymphocytes % (auto) 11.1 % (10.0-50.0); Mean Corpuscular Hemoglobin 32.8 pg (28.0-32.0); Mean Corpuscular Hgb Conc. 33.8 g/dL (32.0-36.0); Monocytes # (auto) 0.5 10 ^3/uL (0-1.3); Monocytes % (auto) 9.2 % (0.0-12.0); Neutrophils # (auto) 3.9 10 ^3/uL (1.6-8.6); Neutrophils % (auto) 78.5 % (37.0-80.0); Nucleated Red Blood Cells % 0.1 %; Platelet Count (auto) 141 10^3/uL (140-450); Red Blood Cells 4.58 10^6/uL (4.5-5.90); Red Cell Distribution Width 13.9 % (11.8-14.3)
[2020-09-20 10:36] LABS: Albumin 3.2 g/dL (3.4-5.0); Anion Gap 6 (5-15); Blood Urea Nitrogen 39 mg/dL (7-18); Calcium 8.7 mg/dL (8.5-10.1); Carbon Dioxide 28 mmol/L (21-32); Chloride 102 mmol/L (98-107); Glucose 140 mg/dL (74-106); Potassium 4.9 mmol/L (3.5-5.1); Sodium 136 mmol/L (136-145)
[2020-09-20 10:43] LABS: Alanine Aminotransferase 31 U/L (16-61); Alkaline Phosphatase 77 U/L (45-117); Aspartate Aminotransferase 25 U/L (15-37); BUN/Creatinine Ratio 18.8; Bilirubin, Total 0.4 mg/dL (0.2-1.0); Blood Alcohol < 3.0 mg/dL (0-5); GFR African American 41 mL/min; GFR Non-African American 34 mL/min; Total Protein 7.9 g/dL (6.4-8.2)
[2020-09-20 10:56] LABS: Amphetamine Screen, Urine NEGATIVE (NEGATIVE); Barbiturate Scree,Urine NEGATIVE (NEGATIVE); Benzodiazephine Screen, Urine NEGATIVE (NEGATIVE); Cannabinoid Screen, Urine NEGATIVE (NEGATIVE); Cocaine Screen, Urine NEGATIVE (NEGATIVE); Opiate Scree,Urine NEGATIVE (NEGATIVE); Phencyclidine Screen, Urine NEGATIVE (NEGATIVE)
[2020-09-20 10:59] LABS: Urine Bacteria NONE SEEN /hpf (None Seen); Urine Blood Negative /uL (Negative); Urine Hyaline Cast FEW /lpf (0 - 2); Urine Mucus FEW (None Seen); Urine Specific Gravity 1.012 (1.001-1.035); Urine WBC 2 /hpf (0 - 3)
[2020-09-20] MEDS ORDERED: cefTRIAXone 1GM/50ML D5W 50 ML IV ONE (17:00)
[2020-09-20] MEDS ORDERED: DexAMETHasone SOD PHOS 10MG/1ML VIAL INJ IV ONE (17:00)
[2020-09-20] MEDS ORDERED: ACETAMINOPHEN 325 MG TAB PO ONE (20:45)
[2020-09-20] MEDS ORDERED: MORPHINE SULF INJ 2 MG/ML SYRINGE 1ML IV PRN (23:00)
[2020-09-20] MEDS ORDERED: DOCUSATE CALCIUM 240 MG CAP PO PRN (23:00)
[2020-09-20] MEDS ORDERED: hydrALAZINE HCL 20 MG/ML VL IV PRN (23:00)
[2020-09-20] MEDS ORDERED: ONDANSETRON HCL 4 MG/2 ML VIAL IV PRN (23:00)
[2020-09-20] MEDS ORDERED: LORazepam 0.5 MG TAB PO PRN (23:00)
[2020-09-20] MEDS ORDERED: ACETAMINOPHEN 500 MG TAB PO PRN (23:00)
[2020-09-20] MEDS ORDERED: NITROGLYCERIN 0.4 MG SL TAB SL PRN (23:00)
[2020-09-20] MEDS ORDERED: DEXTROSE (50%) 50ML SYRG IV PRN (23:45)
[2020-09-20] MEDS: SODIUM CHLORIDE 0.9% 1,000 ML IV SCH (23:58)
[2020-09-21] MEDS: PIPERACILLIN-TAZOB 2.25GM 50 ML IV SCH ×4 (00:04→21:58)
[2020-09-21] MEDS: MORPHINE SULF INJ 2 MG/ML SYRINGE 1ML IV PRN ×3 (03:13→21:59)
[2020-09-21] MEDS ORDERED: methylPREDNISolone SOD SUCC 125 MG/2 ML VL IV SCH (06:00)
[2020-09-21] MEDS: ACCU-CHEK COMFORT CURVE STRIP VI SCH ×4 (06:47→21:57)
[2020-09-21] MEDS: InsuLIN REG 1unit/0.01ml Soln (100units/ml) SC SCH ×4 (07:06→21:56)
[2020-09-21 07:54] LABS: Basophils # (auto) 0 10 ^3/uL (0-0.2); Basophils % (auto) 0.2 % (0.0-2.0); Eosinophils # (auto) 0 10 ^3/uL (0-0.8); Hematocrit 42.4 % (41.0-53.0); Hemoglobin 14.8 g/dL (13.5-17.5); Lymphocytes # (auto) 0.4 10 ^3/uL (0.4-5.4); Lymphocytes % (auto) 7.1 % (10.0-50.0); Mean Corpuscular Hemoglobin 33.4 pg (28.0-32.0); Mean Corpuscular Hgb Conc. 34.8 g/dL (32.0-36.0); Monocytes # (auto) 0.4 10 ^3/uL (0-1.3); Monocytes % (auto) 7.5 % (0.0-12.0); Neutrophils # (auto) 4.3 10 ^3/uL (1.6-8.6); Neutrophils % (auto) 85.2 % (37.0-80.0); Platelet Count (auto) 162 10^3/uL (140-450); Red Blood Cells 4.42 10^6/uL (4.5-5.90); Red Cell Distribution Width 13.9 % (11.8-14.3)
[2020-09-21] MEDS: ALBUTEROL SULF HFA 90MCG INH 200DOSE IN PRN ×2 (08:51→18:48)
[2020-09-21] MEDS: BUDESONIDE (INHALATION) 180 MCG IH IN SCH ×2 (08:51→18:48)
[2020-09-21 09:47] LABS: Potassium 4.8 mmol/L (3.5-5.1)
[2020-09-21 09:58] LABS: Bilirubin, Total 0.5 mg/dL (0.2-1.0); CRP High Sensitivity 8.62 mg/dL (< 0.3); Calcium 8.9 mg/dL (8.5-10.1); Magnesium 1.9 mg/dL (1.6-2.6); Total Protein 7.6 g/dL (6.4-8.2)
[2020-09-21] MEDS ORDERED: AMIODARONE HCL 200 MG TAB PO SCH (10:00)
[2020-09-21] MEDS: LEVOTHYROXINE SODIUM 50 MCG TAB PO SCH (10:01)
[2020-09-21] MEDS: glipiZIDE 5 MG TAB PO SCH (10:02)
[2020-09-21] MEDS: ASCORBIC ACID 1,000 MG TAB PO SCH (10:02)
[2020-09-21] MEDS: PANTOPRAZOLE 40 MG TAB PO SCH (10:03)
[2020-09-21] MEDS: CHOLECALCIFEROL (VITD3) 2,000 UNIT CAP PO SCH (10:04)
[2020-09-21] MEDS: ZINC SULFATE 220mg CAP or TAB PO SCH (10:04)
[2020-09-21] MEDS: PIOGLITAZONE HYDROCHLORIDE 30 MG TAB PO SCH (10:06)
[2020-09-21] MEDS ORDERED: metFORMIN HYDROCHLORIDE 500 MG TAB PO ONE (10:45)
[2020-09-21] MEDS: TOVIAZ 8 MG PO SCH (11:44)
[2020-09-21] MEDS: ISOSORBIDE MONONITRATE 10 MG PO SCH (11:44)
[2020-09-21] MEDS: LISINOPRIL 5 MG TAB PO SCH (11:48)
[2020-09-21] MEDS: DABIGATRAN 75 MG CAP PO SCH (13:33)
[2020-09-21] MEDS: ACETAMINOPHEN 500 MG TAB PO PRN (15:06)
[2020-09-21] MEDS: metFORMIN HYDROCHLORIDE 500 MG TAB PO SCH (18:04)
[2020-09-21] MEDS: SODIUM CHLORIDE 0.9% 1,000 ML IV SCH (19:00)
[2020-09-22] VITALS: BP 155/69
[2020-09-22] MEDS: MORPHINE SULF INJ 2 MG/ML SYRINGE 1ML IV PRN (04:46)
[2020-09-22] MEDS: PIPERACILLIN-TAZOB 2.25GM 50 ML IV SCH ×3 (05:43→22:13)
[2020-09-22] MEDS: ACCU-CHEK COMFORT CURVE STRIP VI SCH ×4 (06:51→22:13)
[2020-09-22] MEDS: InsuLIN REG 1unit/0.01ml Soln (100units/ml) SC SCH ×4 (06:51→22:00)
[2020-09-22 08:00] VITALS: BP 145/67
[2020-09-22 08:30] LABS: Basophils # (auto) 0 10 ^3/uL (0-0.2); Basophils % (auto) 0.1 % (0.0-2.0); Eosinophils # (auto) 0 10 ^3/uL (0-0.8); Hematocrit 47.9 % (41.0-53.0); Hemoglobin 15.9 g/dL (13.5-17.5); Lymphocytes # (auto) 0.6 10 ^3/uL (0.4-5.4); Lymphocytes % (auto) 5.4 % (10.0-50.0); Mean Corpuscular Hgb Conc. 33.2 g/dL (32.0-36.0); Mean Corpuscular Volume 99.2 fL (80.0-100.0); Monocytes # (auto) 0.8 10 ^3/uL (0-1.3); Monocytes % (auto) 7.2 % (0.0-12.0); Neutrophils # (auto) 10.2 10 ^3/uL (1.6-8.6); Neutrophils % (auto) 87.3 % (37.0-80.0); Nucleated Red Blood Cells % 0.1 %; Platelet Count (auto) 207 10^3/uL (140-450); Red Blood Cells 4.83 10^6/uL (4.5-5.90); Red Cell Distribution Width 14.1 % (11.8-14.3); White Blood Cell 11.7 10^3/uL (4.4-10.8)
[2020-09-22 08:57] LABS: Calcium 8.9 mg/dL (8.5-10.1); Magnesium 2.1 mg/dL (1.6-2.6); Potassium 4.8 mmol/L (3.5-5.1)
[2020-09-22 08:59] LABS: BUN/Creatinine Ratio 24.8
[2020-09-22] MEDS: metFORMIN HYDROCHLORIDE 500 MG TAB PO SCH ×2 (09:20→18:00)
[2020-09-22] MEDS: BUDESONIDE (INHALATION) 180 MCG IH IN SCH ×2 (09:33→20:06)
[2020-09-22] MEDS: PIOGLITAZONE HYDROCHLORIDE 30 MG TAB PO SCH (09:34)
[2020-09-22] MEDS: ZINC SULFATE 220mg CAP or TAB PO SCH (09:34)
[2020-09-22] MEDS: DexAMETHasone SOD PHOS 10MG/1ML VIAL INJ IV SCH (09:34)
[2020-09-22] MEDS: TOVIAZ 8 MG PO SCH (09:34)
[2020-09-22] MEDS: ISOSORBIDE MONONITRATE 10 MG PO SCH (09:34)
[2020-09-22] MEDS: PANTOPRAZOLE 40 MG TAB PO SCH (09:35)
[2020-09-22] MEDS: glipiZIDE 5 MG TAB PO SCH (09:35)
[2020-09-22] MEDS: DABIGATRAN 75 MG CAP PO SCH (09:35)
[2020-09-22] MEDS: LEVOTHYROXINE SODIUM 50 MCG TAB PO SCH (09:35)
[2020-09-22] MEDS: DRONEDARONE HCL 400 MG TAB PO SCH (09:35)
[2020-09-22] MEDS: LISINOPRIL 5 MG TAB PO SCH (09:36)
[2020-09-22] MEDS: ASCORBIC ACID 1,000 MG TAB PO SCH (09:36)
[2020-09-22] MEDS: CHOLECALCIFEROL (VITD3) 2,000 UNIT CAP PO SCH (09:36)
[2020-09-22] MEDS: SODIUM CHLORIDE 0.9% 1,000 ML IV SCH (15:09)
[2020-09-22 16:00] VITALS: BP 146/75
[2020-09-22] MEDS ORDERED: ONDANSETRON HCL 4 MG/2 ML VIAL IV PRN (16:45)
[2020-09-22] MEDS: ALBUTEROL SULF HFA 90MCG INH 200DOSE IN PRN (20:06)
[2020-09-22] MEDS: PROMETHAZINE HCL 25 MG/ML 1ML IV PRN (20:16)
[2020-09-23] VITALS: BP 161/75
[2020-09-23] MEDS: ACETAMINOPHEN 500 MG TAB PO PRN (02:34)
[2020-09-23] MEDS: PROMETHAZINE HCL 25 MG/ML 1ML IV PRN ×2 (04:28→08:51)
[2020-09-23] MEDS: PIPERACILLIN-TAZOB 2.25GM 50 ML IV SCH ×3 (05:50→21:19)
[2020-09-23] MEDS: ACCU-CHEK COMFORT CURVE STRIP VI SCH ×4 (06:34→21:19)
[2020-09-23] MEDS: InsuLIN REG 1unit/0.01ml Soln (100units/ml) SC SCH ×4 (06:34→21:19)
[2020-09-23 07:37] LABS: Potassium 4.1 mmol/L (3.5-5.1)
[2020-09-23 07:52] LABS: BUN/Creatinine Ratio 24.8; Calcium 8.3 mg/dL (8.5-10.1)
[2020-09-23 08:00] VITALS: BP 151/80
[2020-09-23] MEDS: metFORMIN HYDROCHLORIDE 500 MG TAB PO SCH ×2 (08:00→20:30)
[2020-09-23] MEDS: ZINC SULFATE 220mg CAP or TAB PO SCH (10:00)
[2020-09-23] MEDS: PANTOPRAZOLE 40 MG TAB PO SCH (10:00)
[2020-09-23] MEDS: TOVIAZ 8 MG PO SCH (10:00)
[2020-09-23] MEDS: PIOGLITAZONE HYDROCHLORIDE 30 MG TAB PO SCH (10:00)
[2020-09-23] MEDS: LEVOTHYROXINE SODIUM 50 MCG TAB PO SCH (10:00)
[2020-09-23] MEDS: ASCORBIC ACID 1,000 MG TAB PO SCH (10:00)
[2020-09-23] MEDS: glipiZIDE 5 MG TAB PO SCH (10:00)
[2020-09-23] MEDS: ISOSORBIDE MONONITRATE 10 MG PO SCH (10:00)
[2020-09-23] MEDS: CHOLECALCIFEROL (VITD3) 2,000 UNIT CAP PO SCH (10:00)
[2020-09-23] MEDS: BUDESONIDE (INHALATION) 180 MCG IH IN SCH ×2 (10:25→19:24)
[2020-09-23] MEDS: ALBUTEROL SULF HFA 90MCG INH 200DOSE IN PRN ×2 (10:25→19:24)
[2020-09-23] MEDS: DexAMETHasone SOD PHOS 10MG/1ML VIAL INJ IV SCH (11:07)
[2020-09-23] MEDS: DABIGATRAN 75 MG CAP PO SCH (11:08)
[2020-09-23] MEDS: DRONEDARONE HCL 400 MG TAB PO SCH (11:08)
[2020-09-23] MEDS: SODIUM CHLORIDE 0.9% 1,000 ML IV SCH (11:10)
[2020-09-23] MEDS: LISINOPRIL 5 MG TAB PO SCH (11:11)
[2020-09-23 15:38] VITALS: BP 110/65
[2020-09-24] VITALS: BP 124/65
[2020-09-24] MEDS: ACCU-CHEK COMFORT CURVE STRIP VI SCH ×4 (05:37→23:19)
[2020-09-24] MEDS: PIPERACILLIN-TAZOB 2.25GM 50 ML IV SCH ×3 (05:37→22:00)
[2020-09-24] MEDS: SODIUM CHLORIDE 0.9% 1,000 ML IV SCH (05:37)
[2020-09-24] MEDS: InsuLIN REG 1unit/0.01ml Soln (100units/ml) SC SCH ×4 (05:38→22:00)
[2020-09-24 06:39] LABS: Basophils # (auto) 0 10 ^3/uL (0-0.2); Basophils % (auto) 0.2 % (0.0-2.0); Eosinophils # (auto) 0 10 ^3/uL (0-0.8); Eosinophils % (auto) 0.3 % (0.0-7.0); Hematocrit 44.1 % (41.0-53.0); Hemoglobin 14.8 g/dL (13.5-17.5); Lymphocytes # (auto) 0.9 10 ^3/uL (0.4-5.4); Lymphocytes % (auto) 15.6 % (10.0-50.0); Mean Corpuscular Hemoglobin 32.5 pg (28.0-32.0); Mean Corpuscular Hgb Conc. 33.6 g/dL (32.0-36.0); Mean Corpuscular Volume 96.7 fL (80.0-100.0); Monocytes # (auto) 0.8 10 ^3/uL (0-1.3); Monocytes % (auto) 13.5 % (0.0-12.0); Neutrophils # (auto) 4.3 10 ^3/uL (1.6-8.6); Neutrophils % (auto) 70.4 % (37.0-80.0); Nucleated Red Blood Cells % 0.1 %; Platelet Count (auto) 246 10^3/uL (140-450); Red Blood Cells 4.57 10^6/uL (4.5-5.90); Red Cell Distribution Width 13.8 % (11.8-14.3); White Blood Cell 6.1 10^3/uL (4.4-10.8)
[2020-09-24 06:45] LABS: Calcium 8.8 mg/dL (8.5-10.1); Magnesium 1.8 mg/dL (1.6-2.6); Potassium 4.1 mmol/L (3.5-5.1)
[2020-09-24] MEDS: ALBUTEROL SULF HFA 90MCG INH 200DOSE IN PRN ×2 (07:12→20:26)
[2020-09-24] MEDS: BUDESONIDE (INHALATION) 180 MCG IH IN SCH ×2 (07:12→20:26)
[2020-09-24 08:00] VITALS: BP 140/66
[2020-09-24] MEDS: metFORMIN HYDROCHLORIDE 500 MG TAB PO SCH ×2 (09:13→17:47)
[2020-09-24] MEDS: ASCORBIC ACID 1,000 MG TAB PO SCH (10:00)
[2020-09-24] MEDS: ZINC SULFATE 220mg CAP or TAB PO SCH (10:00)
[2020-09-24] MEDS: PIOGLITAZONE HYDROCHLORIDE 30 MG TAB PO SCH (10:00)
[2020-09-24] MEDS: ISOSORBIDE MONONITRATE 10 MG PO SCH (10:00)
[2020-09-24] MEDS: CHOLECALCIFEROL (VITD3) 2,000 UNIT CAP PO SCH (10:00)
[2020-09-24] MEDS: TOVIAZ 8 MG PO SCH (10:00)
[2020-09-24] MEDS: DexAMETHasone SOD PHOS 10MG/1ML VIAL INJ IV SCH (10:07)
[2020-09-24] MEDS: DRONEDARONE HCL 400 MG TAB PO SCH (10:08)
[2020-09-24] MEDS: glipiZIDE 5 MG TAB PO SCH (10:08)
[2020-09-24] MEDS: DABIGATRAN 75 MG CAP PO SCH (10:08)
[2020-09-24] MEDS: PANTOPRAZOLE 40 MG TAB PO SCH (10:09)
[2020-09-24] MEDS: LEVOTHYROXINE SODIUM 50 MCG TAB PO SCH (10:09)
[2020-09-24] MEDS: LISINOPRIL 5 MG TAB PO SCH (10:10)
[2020-09-24 15:41] VITALS: BP 132/68
[2020-09-24 23:35] VITALS: BP 125/68
[2020-09-25] MEDS: PIPERACILLIN-TAZOB 2.25GM 50 ML IV SCH (05:33)
[2020-09-25] MEDS: InsuLIN REG 1unit/0.01ml Soln (100units/ml) SC SCH ×2 (05:33→11:30)
[2020-09-25] MEDS: ACCU-CHEK COMFORT CURVE STRIP VI SCH ×2 (05:34→11:30)
[2020-09-25] MEDS: BUDESONIDE (INHALATION) 180 MCG IH IN SCH (06:46)
[2020-09-25] MEDS: ALBUTEROL SULF HFA 90MCG INH 200DOSE IN PRN (06:46)
[2020-09-25 08:00] VITALS: BP 143/67
[2020-09-25] MEDS: metFORMIN HYDROCHLORIDE 500 MG TAB PO SCH (08:00)
[2020-09-25] MEDS: glipiZIDE 5 MG TAB PO SCH (10:00)
[2020-09-25] MEDS: PIOGLITAZONE HYDROCHLORIDE 30 MG TAB PO SCH (10:00)
[2020-09-25] MEDS: TOVIAZ 8 MG PO SCH (10:00)
[2020-09-25] MEDS: CHOLECALCIFEROL (VITD3) 2,000 UNIT CAP PO SCH (10:00)
[2020-09-25] MEDS: ZINC SULFATE 220mg CAP or TAB PO SCH (10:00)
[2020-09-25] MEDS: ISOSORBIDE MONONITRATE 10 MG PO SCH (10:00)
[2020-09-25] MEDS: ASCORBIC ACID 1,000 MG TAB PO SCH (10:00)
[2020-09-25] MEDS: DexAMETHasone SOD PHOS 10MG/1ML VIAL INJ IV SCH (10:09)
[2020-09-25] MEDS: DRONEDARONE HCL 400 MG TAB PO SCH (10:12)
[2020-09-25] MEDS: LEVOTHYROXINE SODIUM 50 MCG TAB PO SCH (10:12)
[2020-09-25] MEDS: DABIGATRAN 75 MG CAP PO SCH (10:12)
[2020-09-25] MEDS: PANTOPRAZOLE 40 MG TAB PO SCH (10:12)
[2020-09-25] MEDS: LISINOPRIL 5 MG TAB PO SCH (10:13)
[2020-09-25 11:34] VITALS: BP 143/67
[2020-09-25 16:00] VITALS: BP 107/51
== END 2020-09-25 16:55 | disposition home or self-care (01) | DRG 177 ==
LOC: EDBD 09:14 → ER 09:14 → OVERFLOW 09:15 → TELE-EAST 09-21 23:42
PROVIDERS: ADMIT Family Medicine; ATTEND Internal Medicine Geriatric Medicine
DX: U07.1 COVID-19 (principal); G93.41 Metabolic encephalopathy; J12.82 Pneumonia due to coronavirus disease 2019; N17.9 Acute kidney failure, unspecified; R06.03 Acute respiratory distress; I48.91 Unspecified atrial fibrillation; E11.65 Type 2 diabetes mellitus with hyperglycemia; E03.9 Hypothyroidism, unspecified; E86.0 Dehydration; G89.29 Other chronic pain; I10 Essential (primary) hypertension; I25.10 Atherosclerotic heart disease of native coronary artery without angina pectoris
CPT/HCPCS: 36415; 70450; 71045; 80048; 80053; 80307; 80320; 81001; 82306; 82728; 82947; 82962; 83036; 83605; 83615; 83735; 84443; 84484; 85025; 85379; 86141; 87040; 87426; 93005; 94640; 96365; 96375; 97116; 97530; 99291; G0378; J0696; J1100; J1815; J2405; J2543

== ENCOUNTER 2021-08-03 18:28 | Inpatient (IN) | payer OTHER ==
[~2021-08-03] VITALS: Ht 177.8 cm; Wt 122.9 kg
[~2021-08-03 18:28] MED LIST changes: +ISOS1TAB28 PO; -ISOS30TA4 PO
[2021-08-03] MEDS ORDERED: SODIUM CHLORIDE 0.9% 500 ML IV ONE (18:45)
[2021-08-03] MEDS ORDERED: ONDANSETRON HCL 4 MG/2 ML VIAL IV ONE (18:45)
[2021-08-03] MEDS ORDERED: HYDROmorphone HCL 2 MG/ML VL IV ONE (18:45)
[2021-08-03 20:19] LABS: Basophils # (auto) 0 10 ^3/uL (0-0.2); Basophils % (auto) 0.7 % (0.0-2.0); Eosinophils # (auto) 0.1 10 ^3/uL (0-0.8); Eosinophils % (auto) 2.3 % (0.0-7.0); Hematocrit 40.6 % (41.0-53.0); Hemoglobin 13.4 g/dL (13.5-17.5); Lymphocytes # (auto) 0.8 10 ^3/uL (0.4-5.4); Lymphocytes % (auto) 12.1 % (10.0-50.0); Mean Corpuscular Hemoglobin 32.8 pg (28.0-32.0); Mean Corpuscular Hgb Conc. 33.1 g/dL (32.0-36.0); Mean Corpuscular Volume 99.2 fL (80.0-100.0); Monocytes # (auto) 0.5 10 ^3/uL (0-1.3); Monocytes % (auto) 7.8 % (0.0-12.0); Neutrophils % (auto) 77.1 % (37.0-80.0); Nucleated Red Blood Cells % 0.1 %; Red Blood Cells 4.09 10^6/uL (4.5-5.90); Red Cell Distribution Width 14.4 % (11.8-14.3); White Blood Cell 6.4 10^3/uL (4.4-10.8)
[2021-08-03 20:34] LABS: Calcium 8.1 mg/dL (8.5-10.1); Potassium 4.8 mmol/L (3.5-5.1)
[2021-08-03 20:38] LABS: BUN/Creatinine Ratio 18.9; Bilirubin, Total 0.4 mg/dL (0.2-1.0); Total Protein 6.3 g/dL (6.4-8.2)
[2021-08-03 20:39] LABS: INR 1.12 (0.9-1.15); Partial Thromboplastin Time 30.4 sec (23.6-33.0)
[2021-08-03] MEDS ORDERED: ACETAMINOPHEN 325 MG TAB PO PRN (23:15)
[2021-08-03] MEDS ORDERED: HYDROcodone-ACET 5/325MG TAB PO PRN (23:15)
[2021-08-03] MEDS ORDERED: DEXTROSE (50%) 50ML SYRG IV PRN (23:15)
[2021-08-03 23:18] LABS: Urine Bacteria NONE SEEN /hpf (None Seen); Urine Blood Negative /uL (Negative); Urine Specific Gravity 1.014 (1.001-1.035); Urine WBC <1 /hpf (0 - 3)
[2021-08-04] MEDS: ACCU-CHEK COMFORT CURVE STRIP VI SCH ×5 (01:17→23:54)
[2021-08-04] MEDS: ONDANSETRON HCL 4 MG/2 ML VIAL IV PRN ×2 (04:53→10:02)
[2021-08-04] MEDS: MORPHINE SULFATE 4 MG/ML SYR/VIAL IV PRN ×5 (04:54→22:55)
[2021-08-04] MEDS: InsuLIN REG 1unit/0.01ml Soln (100units/ml) SC SCH ×5 (06:00→23:54)
[2021-08-04] MEDS: LEVOTHYROXINE SODIUM 50 MCG TAB PO SCH (06:38)
[2021-08-04] MEDS: AMIODARONE HCL 200 MG TAB PO SCH (09:55)
[2021-08-04] MEDS: ISOSORBIDE MONONITRATE 20 MG TAB PO SCH (09:57)
[2021-08-04 11:28] LABS: Basophils # (auto) 0 10 ^3/uL (0-0.2); Basophils % (auto) 0.4 % (0.0-2.0); Eosinophils # (auto) 0.2 10 ^3/uL (0-0.8); Eosinophils % (auto) 2.8 % (0.0-7.0); Hematocrit 40.9 % (41.0-53.0); Hemoglobin 13.8 g/dL (13.5-17.5); Lymphocytes # (auto) 0.8 10 ^3/uL (0.4-5.4); Lymphocytes % (auto) 11.3 % (10.0-50.0); Mean Corpuscular Hemoglobin 33.4 pg (28.0-32.0); Mean Corpuscular Hgb Conc. 33.9 g/dL (32.0-36.0); Mean Corpuscular Volume 98.7 fL (80.0-100.0); Monocytes # (auto) 0.7 10 ^3/uL (0-1.3); Monocytes % (auto) 10.2 % (0.0-12.0); Neutrophils # (auto) 5.2 10 ^3/uL (1.6-8.6); Neutrophils % (auto) 75.3 % (37.0-80.0); Red Blood Cells 4.14 10^6/uL (4.5-5.90); Red Cell Distribution Width 14.6 % (11.8-14.3); White Blood Cell 6.9 10^3/uL (4.4-10.8)
[2021-08-04 11:50] LABS: BUN/Creatinine Ratio 14.5; Calcium 8.3 mg/dL (8.5-10.1); Potassium 3.9 mmol/L (3.5-5.1)
[2021-08-04 15:30] VITALS: BP 126/45
[2021-08-04] MEDS ORDERED: MORPHINE SULFATE 4 MG/ML SYR/VIAL IV PRN (16:00)
[2021-08-04 17:00] VITALS: BP 126/45
[2021-08-04] MEDS: SODIUM CHLORIDE 0.9% 1,000 ML IV SCH (17:09)
[2021-08-04] MEDS ORDERED: OXYCODONE W/ ACETAMINOPHEN 5/325MG TABLET PO PRN (20:30)
[2021-08-04] MEDS: ATORVASTATIN 20 MG TAB PO SCH (21:03)
[2021-08-04 22:00] VITALS: BP 142/56
[2021-08-05] MEDS: MORPHINE SULFATE 4 MG/ML SYR/VIAL IV PRN ×3 (03:03→18:42)
[2021-08-05 05:00] VITALS: BP 142/60
[2021-08-05] MEDS: SODIUM CHLORIDE 0.9% 1,000 ML IV SCH (05:20)
[2021-08-05 05:59] LABS: Basophils # (auto) 0 10 ^3/uL (0-0.2); Basophils % (auto) 0.3 % (0.0-2.0); Eosinophils # (auto) 0.1 10 ^3/uL (0-0.8); Eosinophils % (auto) 1.6 % (0.0-7.0); Hematocrit 36.7 % (41.0-53.0); Lymphocytes % (auto) 10.5 % (10.0-50.0); Mean Corpuscular Hemoglobin 32.9 pg (28.0-32.0); Mean Corpuscular Hgb Conc. 32.9 g/dL (32.0-36.0); Mean Corpuscular Volume 100.2 fL (80.0-100.0); Monocytes # (auto) 1.5 10 ^3/uL (0-1.3); Monocytes % (auto) 16.1 % (0.0-12.0); Neutrophils # (auto) 6.6 10 ^3/uL (1.6-8.6); Neutrophils % (auto) 71.5 % (37.0-80.0); Nucleated Red Blood Cells % 0.1 %; Red Blood Cells 3.66 10^6/uL (4.5-5.90); Red Cell Distribution Width 14.8 % (11.8-14.3); White Blood Cell 9.3 10^3/uL (4.4-10.8)
[2021-08-05 06:16] LABS: Potassium 4.1 mmol/L (3.5-5.1)
[2021-08-05 06:24] LABS: BUN/Creatinine Ratio 17.4; Calcium 7.8 mg/dL (8.5-10.1)
[2021-08-05] MEDS: ACCU-CHEK COMFORT CURVE STRIP VI SCH ×3 (06:31→17:52)
[2021-08-05] MEDS: LEVOTHYROXINE SODIUM 50 MCG TAB PO SCH (06:31)
[2021-08-05] MEDS: InsuLIN REG 1unit/0.01ml Soln (100units/ml) SC SCH ×3 (06:31→17:52)
[2021-08-05 08:57] VITALS: BP 137/64
[2021-08-05] MEDS: levoFLOXacin 500MG 100 ML IV SCH (09:40)
[2021-08-05] MEDS: AMIODARONE HCL 200 MG TAB PO SCH (09:41)
[2021-08-05] MEDS: ISOSORBIDE MONONITRATE 20 MG TAB PO SCH (09:41)
[2021-08-05] MEDS: HYDROmorphone HCL 2 MG/ML VL IV PRN ×3 (09:42→21:10)
[2021-08-05 13:00] VITALS: BP 120/59
[2021-08-05 17:00] VITALS: BP 131/57
[2021-08-05] MEDS: FUROSEMIDE 40 MG/4 ML VIAL IV SCH (17:51)
[2021-08-05 22:00] VITALS: BP 147/65
[2021-08-05] MEDS: ATORVASTATIN 20 MG TAB PO SCH (22:11)
[2021-08-06] MEDS: ACCU-CHEK COMFORT CURVE STRIP VI SCH ×4 (00:38→17:32)
[2021-08-06] MEDS: InsuLIN REG 1unit/0.01ml Soln (100units/ml) SC SCH ×4 (00:40→17:32)
[2021-08-06] MEDS: MORPHINE SULFATE 4 MG/ML SYR/VIAL IV PRN ×2 (00:52→20:49)
[2021-08-06] MEDS: HYDROmorphone HCL 2 MG/ML VL IV PRN ×3 (03:25→22:55)
[2021-08-06 04:51] VITALS: BP 124/64
[2021-08-06 06:09] LABS: Basophils # (auto) 0 10 ^3/uL (0-0.2); Basophils % (auto) 0.4 % (0.0-2.0); Eosinophils # (auto) 0.2 10 ^3/uL (0-0.8); Eosinophils % (auto) 1.9 % (0.0-7.0); Hematocrit 34.2 % (41.0-53.0); Hemoglobin 11.6 g/dL (13.5-17.5); Lymphocytes # (auto) 0.9 10 ^3/uL (0.4-5.4); Lymphocytes % (auto) 9.3 % (10.0-50.0); Mean Corpuscular Hemoglobin 33.3 pg (28.0-32.0); Mean Corpuscular Hgb Conc. 33.9 g/dL (32.0-36.0); Mean Corpuscular Volume 98.4 fL (80.0-100.0); Monocytes # (auto) 1.5 10 ^3/uL (0-1.3); Monocytes % (auto) 14.9 % (0.0-12.0); Neutrophils # (auto) 7.3 10 ^3/uL (1.6-8.6); Neutrophils % (auto) 73.5 % (37.0-80.0); Nucleated Red Blood Cells % 0.1 %; Red Blood Cells 3.47 10^6/uL (4.5-5.90); Red Cell Distribution Width 14.3 % (11.8-14.3); White Blood Cell 9.9 10^3/uL (4.4-10.8)
[2021-08-06 06:25] LABS: Magnesium 1.8 mg/dL (1.6-2.6); Potassium 4.4 mmol/L (3.5-5.1)
[2021-08-06 06:27] LABS: BUN/Creatinine Ratio 16.4; Calcium 8.1 mg/dL (8.5-10.1)
[2021-08-06] MEDS: LEVOTHYROXINE SODIUM 50 MCG TAB PO SCH (06:30)
[2021-08-06] MEDS: FUROSEMIDE 40 MG/4 ML VIAL IV SCH ×2 (06:30→18:25)
[2021-08-06] MEDS: levoFLOXacin 500MG 100 ML IV SCH (08:54)
[2021-08-06] MEDS: AMIODARONE HCL 200 MG TAB PO SCH (08:54)
[2021-08-06] MEDS: ISOSORBIDE MONONITRATE 20 MG TAB PO SCH (08:55)
[2021-08-06 12:50] VITALS: BP 125/60
[2021-08-06 17:24] VITALS: BP 139/58
[2021-08-06] MEDS: ATORVASTATIN 20 MG TAB PO SCH (21:00)
[2021-08-06 22:00] VITALS: BP 110/59
[2021-08-07 05:00] VITALS: BP 138/58
[2021-08-07] MEDS: MORPHINE SULFATE 4 MG/ML SYR/VIAL IV PRN (05:23)
[2021-08-07] MEDS: ACCU-CHEK COMFORT CURVE STRIP VI SCH ×5 (05:25→23:26)
[2021-08-07] MEDS: FUROSEMIDE 40 MG/4 ML VIAL IV SCH ×2 (05:25→18:19)
[2021-08-07] MEDS: InsuLIN REG 1unit/0.01ml Soln (100units/ml) SC SCH ×5 (05:34→23:27)
[2021-08-07 06:24] LABS: Basophils # (auto) 0 10 ^3/uL (0-0.2); Basophils % (auto) 0.3 % (0.0-2.0); Eosinophils # (auto) 0.2 10 ^3/uL (0-0.8); Hematocrit 33.4 % (41.0-53.0); Hemoglobin 11.4 g/dL (13.5-17.5); Lymphocytes # (auto) 0.7 10 ^3/uL (0.4-5.4); Mean Corpuscular Hemoglobin 32.8 pg (28.0-32.0); Mean Corpuscular Volume 96.5 fL (80.0-100.0); Monocytes # (auto) 1.1 10 ^3/uL (0-1.3); Monocytes % (auto) 14.4 % (0.0-12.0); Neutrophils # (auto) 5.9 10 ^3/uL (1.6-8.6); Neutrophils % (auto) 74.3 % (37.0-80.0); Red Blood Cells 3.46 10^6/uL (4.5-5.90)
[2021-08-07 06:38] LABS: BUN/Creatinine Ratio 19.7; Magnesium 1.7 mg/dL (1.6-2.6); Potassium 3.9 mmol/L (3.5-5.1)
[2021-08-07 06:39] LABS: INR 1.03 (0.9-1.15); Partial Thromboplastin Time 28.6 sec (23.6-33.0)
[2021-08-07] MEDS: LEVOTHYROXINE SODIUM 50 MCG TAB PO SCH (07:02)
[2021-08-07 09:00] VITALS: BP 151/72
[2021-08-07] MEDS: levoFLOXacin 500MG 100 ML IV SCH ×2 (10:27→13:44)
[2021-08-07] MEDS: AMIODARONE HCL 200 MG TAB PO SCH (10:28)
[2021-08-07] MEDS: ISOSORBIDE MONONITRATE 20 MG TAB PO SCH (10:28)
[2021-08-07] MEDS ORDERED: HYDROmorphone HCL 2 MG/ML VL ONE (12:49)
[2021-08-07] MEDS ORDERED: ROCURONIUM 10MG/ML 10ML VIAL IV ONE (12:51)
[2021-08-07] MEDS ORDERED: ceFAZolin 1GM VL ONE (13:35)
[2021-08-07] MEDS ORDERED: ONDANSETRON HCL 4 MG/2 ML VIAL ONE (13:35)
[2021-08-07] MEDS ORDERED: DexAMETHasone SOD PHOS 10MG/1ML VIAL INJ ONE (13:35)
[2021-08-07] MEDS ORDERED: TRANEXAMIC ACID 20 ML ONE (13:50)
[2021-08-07] MEDS ORDERED: BUPIVACAINE W/ EPINEPH 0.5% MPF 30ML VIAL IJ ONE (14:44)
[2021-08-07] MEDS ORDERED: LIDOCAINE W/ EPINEPHRINE 2% INJ 20ML VIAL ONE (14:45)
[2021-08-07] MEDS ORDERED: oxyCODONE HCL 5MG TAB PO PRN (15:45)
[2021-08-07] MEDS ORDERED: ALBUTEROL SULF 2.5 MG/0.5ML(0.5%) NEB SOLN NEB ONE (16:15)
[2021-08-07] MEDS ORDERED: fentaNYL CITRATE 100 MCG/2 ML VL IV PRN (16:15)
[2021-08-07] MEDS ORDERED: HYDROmorphone HCL 2 MG/ML VL IV PRN ×2 (16:15)
[2021-08-07] MEDS ORDERED: ONDANSETRON HCL 4 MG/2 ML VIAL IV PRN (16:15)
[2021-08-07 17:30] VITALS: BP 127/63
[2021-08-07] MEDS: ATORVASTATIN 20 MG TAB PO SCH (21:01)
[2021-08-07] MEDS: ceFAZolin 2 GM in D5W 5% 100 ML IV SCH (21:01)
[2021-08-07 22:00] VITALS: BP 92/65
[2021-08-08 05:00] VITALS: BP 129/50
[2021-08-08] MEDS: ceFAZolin 2 GM in D5W 5% 100 ML IV SCH (05:20)
[2021-08-08] MEDS: FUROSEMIDE 40 MG/4 ML VIAL IV SCH (05:26)
[2021-08-08] MEDS: ACCU-CHEK COMFORT CURVE STRIP VI SCH ×2 (05:26→11:52)
[2021-08-08] MEDS: InsuLIN REG 1unit/0.01ml Soln (100units/ml) SC SCH ×2 (05:33→11:52)
[2021-08-08] MEDS: LEVOTHYROXINE SODIUM 50 MCG TAB PO SCH (06:13)
[2021-08-08 07:56] LABS: Basophils # (auto) 0 10 ^3/uL (0-0.2); Basophils % (auto) 0.1 % (0.0-2.0); Eosinophils # (auto) 0 10 ^3/uL (0-0.8); Hematocrit 32.3 % (41.0-53.0); Hemoglobin 10.8 g/dL (13.5-17.5); Lymphocytes # (auto) 0.6 10 ^3/uL (0.4-5.4); Lymphocytes % (auto) 5.3 % (10.0-50.0); Mean Corpuscular Hemoglobin 33.5 pg (28.0-32.0); Mean Corpuscular Hgb Conc. 33.5 g/dL (32.0-36.0); Mean Corpuscular Volume 100.1 fL (80.0-100.0); Monocytes # (auto) 1.3 10 ^3/uL (0-1.3); Monocytes % (auto) 11.2 % (0.0-12.0); Neutrophils # (auto) 9.4 10 ^3/uL (1.6-8.6); Neutrophils % (auto) 83.4 % (37.0-80.0); Nucleated Red Blood Cells % 0.1 %; Red Blood Cells 3.23 10^6/uL (4.5-5.90); Red Cell Distribution Width 14.3 % (11.8-14.3); White Blood Cell 11.2 10^3/uL (4.4-10.8)
[2021-08-08 08:08] LABS: BUN/Creatinine Ratio 23.9; Calcium 8.1 mg/dL (8.5-10.1); Potassium 4.3 mmol/L (3.5-5.1)
[2021-08-08 09:00] VITALS: BP 118/52
[2021-08-08] MEDS: ISOSORBIDE MONONITRATE 20 MG TAB PO SCH (11:52)
[2021-08-08] MEDS: levoFLOXacin 500MG 100 ML IV SCH (11:52)
[2021-08-08] MEDS: AMIODARONE HCL 200 MG TAB PO SCH (11:52)
[2021-08-08] MEDS: HYDROmorphone HCL 2 MG/ML VL IV PRN (12:43)
[2021-08-08 14:00] VITALS: BP 123/57
== END 2021-08-08 15:45 | DRG 480 ==
LOC: EDBD 18:28 → ER 18:32 → OVERFLOW 23:10 → WEST WING 08-04 14:28
PROVIDERS: ADMIT Nurse Practitioner; ATTEND Internal Medicine Geriatric Medicine
PROC: 05HC33Z Insertion of Infusion Device into Left Basilic Vein, Percutaneous Approach (ICD-10-PCS; 2021-08-04)
PROC: B54NZZA Ultrasonography of Left Upper Extremity Veins, Guidance (ICD-10-PCS; 2021-08-04)
PROC: 0QS706Z Reposition Left Upper Femur with Intramedullary Internal Fixation Device, Open Approach (ICD-10-PCS; principal; 2021-08-07 12:55)
DX: S72.22XA Displaced subtrochanteric fracture of left femur, initial encounter for closed fracture (principal); J18.9 Pneumonia, unspecified organism; J96.01 Acute respiratory failure with hypoxia; E11.9 Type 2 diabetes mellitus without complications; I48.0 Paroxysmal atrial fibrillation; E03.9 Hypothyroidism, unspecified; E78.5 Hyperlipidemia, unspecified; E66.01 Morbid (severe) obesity due to excess calories; N40.0 Benign prostatic hyperplasia without lower urinary tract symptoms; Z95.5 Presence of coronary angioplasty implant and graft; R09.02 Hypoxemia; S51.012A Laceration without foreign body of left elbow, initial encounter; I50.9 Heart failure, unspecified; I11.0 Hypertensive heart disease with heart failure; I25.10 Atherosclerotic heart disease of native coronary artery without angina pectoris; W01.0XXA Fall on same level from slipping, tripping and stumbling without subsequent striking against object, initial encounter; Z20.822 Contact with and (suspected) exposure to COVID-19; Z79.01 Long term (current) use of anticoagulants; Z79.84 Long term (current) use of oral hypoglycemic drugs; Z82.49 Family history of ischemic heart disease and other diseases of the circulatory system; I25.2 Old myocardial infarction; Y93.89 Activity, other specified; Y92.098 Other place in other non-institutional residence as the place of occurrence of the external cause; Y99.8 Other external cause status; Z68.38 Body mass index [BMI] 38.0-38.9, adult
CPT/HCPCS: 36415; 71045; 72192; 73700; 76000; 80048; 80053; 81001; 82962; 83735; 85025; 85610; 85730; 86850; 86900; 86901; 87040; 87077; 87186; 87426; 93005; 93306; 94640; 96361; 96374; 96375; 96376; 97163; G0378; J0690; J1100; J1815; J1956; J2405; J7060